=== PATIENT | male | born 2000 | race Caucasian/White ===

== ENCOUNTER 2025-05-08 11:04 | Outpatient (CLI) | payer OTHER | END 2025-05-08 11:05 | disposition home or self-care (01) | LOC: MADRAD 11:04 | PROVIDERS: ATTEND Chiropractor | DX: M19.90 Unspecified osteoarthritis, unspecified site (principal); M47.896 Other spondylosis, lumbar region; M40.50 Lordosis, unspecified, site unspecified; M47.812 Spondylosis without myelopathy or radiculopathy, cervical region; M47.813 Spondylosis without myelopathy or radiculopathy, cervicothoracic region | CPT/HCPCS: 72040; 72100 ==